=== PATIENT | female | born 1980 | race Caucasian/White ===

== ENCOUNTER 2023-10-01 09:34 | Emergency (ER) | payer BC, SELFPAY ==
[2023-10-01 09:35] VITALS: BP 103/58
--- NOTE | 2023-10-01 09:53 | ED.GENMED ---
History of Present Illness
General
Chief Complaint: Abdominal Pain
Time Seen by Provider: 10/01/23 09:47
Travel History
Have you had any contact with someone who has COVID-19?: No
Do you have any symptoms of coronavirus? Fever > 100 degrees, chills, cough, shortness of breath, sore throat, loss of taste or smell, muscle aches, or headache?: No
History of Present Illness
History of Present Illness:
HPI: The patient presents with abrupt onset severe abdominal pain in the abdomen diffusely that radiates towards the back. She has not had pain like this before. She does have a history of substance abuse and prefers to not take narcotic. She has
no vomiting or diarrhea. She feels bloated.
EXAM:
GENERAL: Well appearing but in moderate distress
HEENT: Moist oral mucosa
CARDIOVASCULAR: No murmurs, normal heart rate and rhythm, No chest wall tenderness
PULMONARY: No respiratory distress, breath sounds are clear and equal
ABDOMEN: Soft with no peritoneal signs, diffuse abdominal tenderness
NEUROLOGIC: Excellent strength all extremities, no coordination deficits
PSYCHIATRIC: Appropriate mental status, normal insight and judgement
EXTREMITIES: Nontender, no edema, moves all extremities equally
SKIN: No rash, no lesions
ED COURSE:
9:45 AM: I initially evaluated patient
NUMBER AND COMPLEXITY OF PROBLEMS ADDRESSED AT THE ENCOUNTER
� Chronic conditions affecting care: History of substance abuse in the past
� Acute Exacerbation and/or Progression of Chronic Illness: This is an acute problem
� Differential Diagnosis includes: Bowel obstruction, ovarian cyst, intestinal spasm, aortic dissection less likely given her age
AMOUNT AND/OR COMPLEXITY OF DATA TO BE REVIEWED AND ANALYZED
� I performed an independent evaluation of and my interpretation is:
EKG:
CT: CT imaging suggests free fluid with possible left ovarian cyst
X-rays:
Laboratory Studies: White count normal at 9.5, hemoglobin slightly low at 10.4, hCG testing negative.
Other:
� Review of other/old records: No old records available for review in [facility]
� Clinical information was obtained by an independent historian: Spoke to at bedside
� Prescriptions/Medications Considered but not given:
� Further testing considered but not performed:
RISK OF COMPLICATIONS AND/OR MORBIDITY OR MORTALITY OF PATIENT MANAGEMENT
� Social determinants of health affecting care: Lives at home with
� Discussion with other providers:
� Escalation of care including admission/observation vs risk of discharge considered: The patient appears very uncomfortable upon arrival. She has a history of substance abuse and we agreed to try Toradol at first. Given the
severity of her pain will obtain CT imaging. On reassessment at 2 PM, the patient appears somewhat improved. I do strongly suspect an anxiety component as well. However given history of substance abuse we will hold off on any narcotic and any
benzos. Sent prescription for ibuprofen 800 mg to her pharmacy as this has helped her in the past.
Phy Exam
Physical Exam
Physical Exam:
See HPI
Course
Orders/Labs/Results
Orders:
Orders
10/01/23 09:52
CT Abd/Pel (IV only)-DH only Urgent
Comment:
Reason For Exam: severe abrupt abd pain
Test Result ONCE
10/01/23 09:53
0.9% Sodium Chloride 1000 ml [Nss] 1,000 ml IV BOLUS
Ketorolac [Toradol] 15 mg IV NOW STA
10/01/23 10:00
Complete Blood Count/With Diff Urgent
Comprehensive Metabolic Panel Urgent
HCG, Serum Qualitative Screen Urgent
Lipase Urgent
10/01/23 11:16
HYDROmorphone [Dilaudid] 1 mg .ROUTE .STK-MED ONE
10/01/23 11:25
HYDROmorphone [Dilaudid] 1 mg IV NOW STA
10/01/23 12:10
US Pelvis Only (non-obstetric) Urgent
Comment:
Reason For Exam: severe pain; abnormal CT suggests cyst
Abnormal Lab Results
10/01/23
10:00
RBC 3.27 L 10^6/uL
(4.20-5.40)
Hgb 10.4 L g/dL
(12.0-16.0)
Hct 30.1 L %
(37.0-47.0)
MCH 31.8 H pg
(27.0-31.0)
Absolute Monos (auto) 0.7 H 10^3/uL
(0.1-0.6)
10/01/23 10:00
10/01/23 10:00
Vital Signs
Initial and Last Documented VS:
Initial Vital Signs
Temp Pulse Resp BP
98.1 F 107 20 103/58
10/01/23 09:35 10/01/23 09:35 10/01/23 09:35 10/01/23 09:35
Last Documented Vital Signs
Temp Pulse Resp BP Pulse Ox
98.1 F 83 13 103/63 98
10/01/23 09:35 10/01/23 14:15 10/01/23 14:15 10/01/23 14:14 10/01/23 14:01
*Critical Care Note
Total Time (30-74mins, 75-104mins- exclusive of procedures): Not Applicable
ED Attending Note
-
Portions of this chart may have been created with voice recognition software.� Occasional wrong word or��sound alike� substitutions may have occurred due to the inherent limitations of voice recognition software.
Discharge Plan
Departure
Patient Disposition: Home (Routine Discharge)
Date of Disposition: 10/01/23
Time of Disposition: 14:04
Patient with high blood pressure during this ER visit?: No
Discharge Problem:
Pelvic pain
Instructions: Ovarian Cyst (DC)
Prescriptions:
New
ibuprofen 800 mg tablet
800 mg PO TID PRN (Reason: Pain) Qty: 21 0RF
Referrals:
Tita Casiano MD [Active] - Follow up in 2-3 days
NONE,* [Family Provider] -
Activity Restrictions/Additional Instructions:
The cause of your pain is somewhat unclear. Your blood work is normal including negative test. Initially, the radiologist suspected a ruptured/hemorrhagic left ovarian cyst, however the left ovary appeared unremarkable on ultrasound
imaging. It did show good blood flow to the left ovary. There is a small to moderate amount of free fluid seen in the pelvis is likely contributing to the pain which very well could be related to a ruptured ovarian cyst. This fluid was seen both
on CAT scan and ultrasound. I recommend you follow-up with sign writer hand.
Interventions
Interventions:
*Risk Screen - Suicide Last Done: 10/01/23 09:35
*General Assessment Last Done: 10/01/23 09:35
*Neglect/Abuse Screening Last Done: 10/01/23 09:35
ED- Fall Risk Assessment Last Done: 10/01/23 10:09
*ED COVID-19 Vaccine History Last Done: 10/01/23 09:35
*Nursing Disposition Last Done: 10/01/23 14:21
YV-Ayimso-Itvbeacwbf Assessment Last Done: 10/01/23 10:09
[2023-10-01 10:00] VITALS: BP 129/68
[2023-10-01] MEDS: TORADOL 15 MG IV (10:06)
[2023-10-01] MEDS: NSS 1000 IV (10:06)
[2023-10-01 10:08] VITALS: BMI 23.3
[2023-10-01 10:20] LABS: % Basophils 0.5 % (0-2); % Eosinophils 1.3 % (0-6); % Immature Granulocytes 0.2 % (0-0.5); % Lymphocytes 24.4 % (20.5-51.1); % Monocytes 6.9 % (1.7-9.3); % Neutrophils 66.7 % (42.2-75.2); Absolute Basophils 0.1 10^3/uL (0-0.2); Absolute Eosinophils 0.1 10^3/uL (0-0.7); Absolute Lymphocytes 2.3 10^3/uL (1.2-3.4); Absolute Monocytes 0.7 10^3/uL (0.1-0.6); Absolute Neutrophils 6.3 10^3/uL (1.4-6.5); Hematocrit 30.1 % (37.0-47.0); Hemoglobin 10.4 g/dL (12.0-16.0); Mean Corp Hgb Conc. 34.6 g/dL (33.0-37.0); Mean Corpuscular Hgb 31.8 pg (27.0-31.0); Mean Platelet Volume 9.2 fL (7.4-10.4); Nucleated Red Blood Cells % 0 %; Platelet Count 234 10^3/uL (130-400); Red Blood Cell Count 3.27 10^6/uL (4.20-5.40); Red Cell Dist. Width 12.4 % (11.5-14.5); White Blood Cell Count 9.5 10^3/uL (4.8-10.8)
[2023-10-01 10:32] LABS: HCG, Serum Qualitative Screen Negative
[2023-10-01 10:34] LABS: ALT (SGPT) 19 U/L (0-35); AST (SGOT) 29 U/L (14-36); Alkaline Phosphatase 39 U/L (38-126); Blood Urea Nitrogen 15 mg/dl (7-17); Calcium 9.1 mg/dl (8.4-10.2); Carbon Dioxide 22 mmol/L (22-30); Chloride 104 mmol/L (98-107); Estimated Creatinine Clearance 88 ml/min; Glucose 94 mg/dl (70-99); Potassium 4.4 mmol/L (3.5-5.1); Sodium 135 mmol/L (135-145); Total Bilirubin 0.6 mg/dl (0.2-1.3); Total Protein 6.3 g/dl (6.3-8.2); eGFR > 60.00
[2023-10-01 11:09] VITALS: BP 104/68
[2023-10-01] MEDS: DILAUDID 1 MG IV (11:25)
[2023-10-01 11:52] LABS: Lipase 118 U/L (23-300)
[2023-10-01 12:01] VITALS: BP 97/63
[2023-10-01 14:14] VITALS: BP 103/63
== END 2023-10-01 14:27 | disposition home or self-care (01) ==
LOC: EMR 09:34
PROVIDERS: EMERGENCY PHYSICIAN Emergency Medicine
DX: R10.2 Pelvic and perineal pain (principal); R14.0 Abdominal distension (gaseous); F90.9 Attention-deficit hyperactivity disorder, unspecified type; F19.11 Other psychoactive substance abuse, in remission
CPT/HCPCS: 99285; 96375; 96361; 96374; 74177; 76856; 80053; 83690; 84703; 85025; Q9967